=== PATIENT | female | born 1995 | race Two or more races ===

== ENCOUNTER → 2016-09-13 | Outpatient (CLI) | payer MEDICAID ==
--- NOTE | 2016-09-13 10:01 | US ---
September 13, [address] Rivero, Thank you for allowing us to see your patient regarding prior demise of a 3 year old secondary to und etermined syndrome including microcephaly, also history of SPTD at 34 weeks. As you know she is a 21 year-old 2, para 0. Her due date is 01/28/17 which is based on 14 week u/s. Her current ges tational age based on this dating is 20 weeks 3 days. She had normal NIPT. Number of fetuses: 1 Placental location: fundal Cord Insertion: Central presentation: transverse Cervix: 4.0 cm MVP: 4.9 cm The adnexa were evaluated. No pathology was seen. Right ovary seen Left ovary seen Measurements: Biparietal diameter: 48 mm 20 weeks, 4 days Head circumference: 176 mm 20 weeks, 1 days Abdominal circumference: 165 mm 21 weeks, 4 days Femur length: 32 mm 20 weeks, 1 days Humerus length: 32 mm 20 weeks, 4 days Transcerebellar diameter: 21 mm 19 weeks, 6 days Average ultrasound age: 20 weeks, 5 days Estimated weight: 377 gm weight percentile: 66 % ANATOMY Upper extremities: Normal Lower extremities: Normal Supratentorial brain: Normal Lateral ventricle: 4.9 mm Posterior fossa: Normal Cisterna Magna: 5.9 mm Spine: Normal Nuchal fold: 3.1 Face: Normal nose, lip, profile, alveolar ridge Heart: Normal rate, rhythm, axis, 4 chamber view, LVOT, RVOT, IVS Stomach: Normal Diaphragm Normal Umbilical cord insertion: Normal Right kidney: Normal Left kidney: Normal Bladder: Normal Number of cord vessels: Three. Impression: This is a 21 year-old, 2, para 0 at 20 weeks, 3 days gestation. 1. SIUP with biometry cw ga of 20 weeks. Nl MVP. No anatomic abnormalities noted 2. Prior child with microcephaly-undetermined syndrome and demise at age 3- agree with Dr Kramer plan for serial growth til delivery especially given #3 3. Zika exposure- serial growth til delivery 4. Prior - no evidence accreta 5. Prior 34 week PTB- she was counseled by Dr Kramer on 17_P,. She and her state that they dec ided not to do 17P in this for fear of medication exposure. I reviewed extensively the saf ety and efficacy data of this. We discussed risk for recurrent and the risks to the in julian associated with this. We discussed the options of vaginal or 17- P progesterone as they chose. I gave them a website to review as well. I encouraged them to reach out to you if they change their mind about its use. She was requested to schedule 6 week f/u for growth. Thank you for allowing me to see your patient. Approximately 25 minutes was spent with the patient a nd 20 was spent discussing her issues. Ema Finley MD Diagnosis Division of Maternal Medicine Department of Obstetrics and Gynecology [facility]
--- NOTE | 2016-09-13 11:26 | US ---
Detailed Obstetric Ultrasound September 13, 2016 0808 hours Indication: G2, P1 female. Evaluate growth and anatomy. The estimated gestational age by LMP is 20 we eks and 3 days yielding an EDC of January 28, 2017. Prior history of a 3-year-old with microcephaly and p rior demise. Comparison: August 02, 2016. Findings: Number: 1. Presentation: Transverse. Placental location: Fundal. Cervix: 4.0 cm. Maximum vertical pocket: 4.9 cm. heart rate: 160 bpm. Ovaries: Normal bilaterally. Biometry: Biparietal diameter: 48 mm 20 weeks, 4 days Head circumference: 176 mm 20 weeks, 1 day Abdominal circumference: 165 mm 21 weeks, 4 days Femur length: 32 mm 20 weeks, 1 day Humerus length: 31 mm 20 weeks, 4 days Transcerebellar diameter: 20 mm 19 weeks, 6 days HC/AC: 1.07 (1.09-1.26) FL/BPD: 67% FL/AC: 20% Average ultrasound age: 20 weeks, 5 days EDC based on today's average ultrasound age: January 26, 2017. Estimated weight is 377 grams +/- 55 grams. The estimated weight is at the 66th percentil e based on previous dating. Anatomy Survey: Supratentorial brain: Normal. Posterior fossa: Normal. Spine: Normal. Nuchal fold: Normal. Nose and lips: Normal. Facial profile: Normal. Heart: Four-chamber heart. Intact interventricular septum. Cardiac outflow tracts: Normal. Stomach: Normal. Umbilical cord insertion: Normal. Kidneys: Normal, no pyelectasis. Bladder: Normal. Number of cord vessels: 3. Upper extremities: Normal. Lower extremities: Normal. Impression: 1. Living razo in transverse presentation. Size concordant with dates. The estimated gestational age by biometry is 20 weeks and 5 days yielding an EDC of January 26, 2017. The estimat ed gestational age by LMP is 20 weeks and 3 days. 2. Unremarkable anatomy. No anomalies detected. Please see separate report for full maternal medicine consultation.
== END ==
LOC: FIMAGING 07:47
PROVIDERS: ATTEND Physician Assistant
DX: O26.851 Spotting complicating pregnancy, first trimester (principal); Z20.828 Contact with and (suspected) exposure to other viral communicable diseases; Z3A.20 20 weeks gestation of pregnancy

== ENCOUNTER → 2016-10-24 | Outpatient (CLI) | payer MEDICAID ==
--- NOTE | 2016-10-24 15:32 | US ---
October 24, 2016 Dear SUMAYA Ascencio, Thank you for requesting consultation and a follow up ultrasound for your patient, Mrs. Karli palmer. As you know, Clover is a 21 year old G 2, P 0100 . Her due date is 01/28/17 by 14 week ult rasound. Her current gestational age based on this dating is is 26 weeks 2 days. She is seen today for a follow up assessment of growth. Her is complicated by Zika exposure and history of a child related to an unknown synd hieu with significant microcephaly and delivery at 34 weeks by section. ULTRASOUND Number of fetuses: 1 Placental location: Fundal presentation: Transverse with head to maternal right Heart Rate: 153 bpm Cervix: 4.0 cm viewed transabdominally Maximum Vertical Pocket: 6.4 cm Measurements: Biparietal diameter: 72 mm 28 weeks, 6 days Head circumference: 260 mm 28 weeks, 3 days Abdominal circumference: 233 mm 27 weeks, 5 days Femur length: 49 mm 26 weeks, 5 days Humerus length: 44 mm 26 weeks, 3 days Transcerebellar diameter: 30 mm 26 weeks, 2 days Average age by ultrasound: 28 weeks, 0 days Estimated weight: 1075 gm weight percentile: 85 % ANATOMY anatomy was previously assessed. Today the following structures were visualized and appeared n ormal: Lateral ventricle, heart, stomach, bilateral kidneys, bladder, and profile. IMPRESSION: 1. Intrauterine at 26 weeks, 2 days; PIERRE of 01/28/17. 2. growth is appropriate size for dates. 3. anatomy was previously assessed and today's ultrasound continues to provide reassurance of normal appearing anatomy. 4. Normal amniotic fluid volume 5. Zika exposure 6. History of unknown syndrome with microcephaly and child at age 3 RECOMMENDATIONS: I was pleased to review today's ultrasound with your patient. I reassured her that growth is normal at the 85 %ile for this gestational age. The amniotic fluid volume is normal. We performed a review of the anatomy which was limited by position and acoustic shadowing, but no overt abnorm alities were noted. Specifically, there is no indication of microcephaly. I recommended a follow up in 4 weeks for continued surveillance. Thank you for allowing us the opportunity to evaluate your patient. Should you have any further ques tions or concerns please do not hesitate to contact me. Approximately 15 minutes were spent with the patient and 10 minutes were spent in face to face consu ltation. Catrina Kramer MD [facility] Maternal [facility] Diagnosis Department of Obstetrics & Gynecology [facility]
--- NOTE | 2016-10-24 17:10 | US ---
Complete Obstetric Ultrasound dated October 24, 2016 Indication: Follow-up growth. Thecal exposure. Previous child with microcephaly. The estimated gesta tional age by LMP is 26 weeks 2 days yielding an EDC of January 28, 2017. Comparison: September 13, 2016 Findings: Number: 1 Presentation: Maternal right Placental location: Posterior without previa Cervix: Closed transabdominally at 4.2 cm HR: 153 bpm MVP: 6.4 cm Left ovary measures 1.3 x 2.5 x 4.7 cm. Right ovary was not seen in the adnexa, but there are no obvi ous adnexal masses. Biometry: Biparietal diameter: 7.2 cm 28 weeks 6 days Head circumference: 26 cm 28 weeks 3 days Abdominal circumference: 23.3 cm 27 weeks 5 days Femur length: 4.9 cm 26 weeks 5 days Humerus length: 4.4 cm 26 weeks 3 days HC/AC: 1.12 (1.04 - 1.22) FL/BPD: 69% FL/AC: 21% Average ultrasound age: 28 weeks 0 days EDC based on today's average ultrasound age: January 16, 2017 Estimated weight is 1075 +/- 157 gms. The estimated weight is at the 85 % based on previo us dating. ANATOMY SURVEY: Supratentorial brain: Normal Posterior fossa: Normal Spine: Normal Nose and lips: Normal Facial profile: Normal Heart: Four chamber heart. Intact interventricular septum. Cardiac outflow tracts: Normal Stomach: Normal Umbilical cord insertion: Normal Kidneys: Normal, no pyelectasis Bladder: Normal Number of cord vessels: Three Upper extremities: Normal Lower extremities: Normal. No clubbing. Impression: 1. Living razo . Size concordant with dates. The estimated gestational age by biometry is 28 weeks 0 days yielding an EDC of January 16, 2017. 2. Unremarkable anatomy. No anomalies detected. 3. Please see additional consultation by Dr. Catrina Kramer.
== END ==
LOC: FIMAGING 14:21
PROVIDERS: ATTEND Physician Assistant
DX: Z03.79 Encounter for other suspected maternal and fetal conditions ruled out (principal); Z3A.26 26 weeks gestation of pregnancy; Z98.891 History of uterine scar from previous surgery; Z82.79 Family history of other congenital malformations, deformations and chromosomal abnormalities

== ENCOUNTER → 2016-11-24 | Outpatient (CLI) | payer MEDICAID | LOC: FIMAGING 14:51 | PROVIDERS: ATTEND Physician Assistant | DX: O36.63X0 Maternal care for excessive fetal growth, third trimester, not applicable or unspecified (principal); O34.219 Maternal care for unspecified type scar from previous cesarean delivery; Z3A.30 30 weeks gestation of pregnancy; Z87.51 Personal history of pre-term labor; Z20.828 Contact with and (suspected) exposure to other viral communicable diseases ==